=== PATIENT | male | born 1995 | race Caucasian/White ===

== ENCOUNTER 2016-09-19 20:18 | Emergency (ER) | payer OTHER ==
[~2016-09-19] VITALS: Ht 177.8 cm; Wt 110.0 kg
[~2016-09-19 20:18] MED LIST: ALBU8.5H3 INH; ALBUTEROL; PRED20TA PO
[2016-09-19 20:25] VITALS: Ht 177.8 cm; Wt 110.0 kg
[2016-09-19] MEDS ORDERED: ALBUTEROL 0.083% (NEB) 2.5 MG/3 ML AMP HHN STA (20:49)
[2016-09-19] MEDS ORDERED: predniSONE 20 MG TAB PO ONE (21:00)
[2016-09-19] MEDS ORDERED: PRED20TA PO (21:32)
[2016-09-19] MEDS ORDERED: ALBU8.5H3 INH (21:32)
[2016-09-19 21:42] VITALS: PULSE 104
--- NOTE | 2016-09-19 23:01 | ERD ---
ER Documentation Chief Complaint Date/Time DATE: 09/19/16 TIME: 22:59 Chief Complaint "progessivly getting more sob over past week, meds not helping" HPI 21-year-old male history of asthma comes emergency department with on and off shortness of breath for the past week. He states that asthma is usually controlled by albuterol but has not improved. He has not had any fevers or chills. He denies any chest pain. ROS All systems reviewed and are negative except as per history of present illness. Medications Home Meds Active Scripts Prednisone* (Prednisone*) 20 Mg Tab, 40 MG PO DAILY for 4 Days, TAB Prov:J LUIS VILLEGAS PA-C 09/19/16 Albuterol Sulfate* (Proair HFA*) 8.5 Gm Hfa.aer.ad, 2 PUFF INH Q4, #1 INHALER Prov:J LUIS VILLEGAS PA-C 09/19/16 Albuterol Sulfate* (Proair HFA*) 8.5 Gm Hfa.aer.ad, 2 PUFF INH Q4, #1 INHALER Prov:DARIEL ALDRICH NP 01/25/16 Prednisone* (Prednisone*) 20 Mg Tab, 40 MG PO DAILY for 4 Days, TAB Prov:DARIEL ALDRICH NP 01/25/16 Reported Medications [None] No Conflict Check 09/15/12 [Albuterol] No Conflict Check 12/23/09 PMhx/Soc History of Surgery: Yes (APPENDECTOMY 2 YEARS AGO) Anesthesia Reaction: No Hx Neurological Disorder: No Hx Respiratory Disorders: Yes (HX OF ASTHAMA SINCE 2 YEAR OLD) Hx Cardiac Disorders: No Hx Psychiatric Problems: No Hx Miscellaneous Medical Probl: No Hx Alcohol Use: No Hx Substance Use: No Hx Tobacco Use: No Smoking Status: Never smoker Physical Exam Vitals Vital Signs Date Time Temp Pulse Resp B/P Pulse Ox O2 Delivery O2 Flow Rate FiO2 09/19/16 21:42 104 97 Room Air 09/19/16 21:03 95 18 98 21 09/19/16 20:25 98.9 97 22 137/95 98 Physical Exam General: Well-developed, well-nourished. The patient appears in no acute distress. HEENT: Head is normocephalic, atraumatic. No scleral icterus. Neck: Supple. Nontender. Lungs: Wheezing bilaterally, no rales rhonchi. Heart: Regular rate and rhythm. S1 and S2 are normal. No murmurs, gallops, or rubs. Abdomen: Soft, nontender, nondistended. Bowel sounds are normoactive. Extremities: No clubbing or cyanosis. Normal pulses. Moving extremities x 4. No weakness. Neurologic: Alert and oriented 3. No focal deficits. Skin: Normal turgor. No rash or lesions. Results 24 hrs Current Medications Medications (Trade) Dose Ordered Sig/John Route PRN Reason Start Time Stop Time Status Last Admin Dose Admin Albuterol (Proventil 0.083% (Neb)) 5 mg ONCE STAT HHN 09/19/16 20:49 09/19/16 20:51 DC 09/19/16 21:03 Prednisone (Prednisone) 40 mg ONCE ONCE PO 09/19/16 21:00 09/19/16 21:01 DC 09/19/16 20:54 Procedures/MDM 21-year-old male comes emergency department with mild asthma exacerbation. He was given albuterol 5 mg neb breathing treatments. Re-auscultation shows improved breath sounds, patient states he is feeling much better at this time. Presents with a mild asthma exacerbation will be discharged with continued prednisone, and a refill of the albuterol. Departure Diagnosis: Primary Impression: Asthma Condition: Good Patient Instructions: Asthma, Acute (Adult) Additional Instructions: Call your primary care doctor TOMORROW for an appointment during the next 1-2 days.See the doctor sooner or return here if your condition worsens before your appointment time. J LUIS VILLEGAS PA-C Sep 19, 2016 23:01
== END 2016-09-19 21:43 | disposition home or self-care (01) ==
LOC: FTE 20:18
DX: J45.901 Unspecified asthma with (acute) exacerbation (principal)
CPT/HCPCS: 94664; J7512; Z7502; Z7610

== ENCOUNTER 2017-07-10 17:03 | Emergency (ER) | END 2017-07-10 19:15 | disposition home or self-care (01) ==

== ENCOUNTER 2018-11-13 15:32 | Emergency (ER) | payer OTHER ==
[~2018-11-13] VITALS: Ht 177.8 cm; Wt 122.9 kg
[~2018-11-13 15:32] MED LIST changes: +ACET-141 PO; +ACET500C5 PO; +ALBU18HF INHALATION; +ALBU2.5V3 NEB; -ALBU8.5H3 INH; +ALBU8.5H8 INH; +ATRO INH; +D-ME118S24 PO; +IBUP-1561 PO; +NEBU1EAC87 MC
[2018-11-13 16:01] VITALS: Ht 177.8 cm; Wt 122.9 kg
[2018-11-13] MEDS ORDERED: ALBUTEROL 0.083% (NEB) 2.5 MG/3 ML AMP NEB STA (16:43)
[2018-11-13] MEDS ORDERED: DEXAMETHASONE 10 MG/ML 1 ML INJ IV STA (16:43)
[2018-11-13] MEDS ORDERED: IPRATROPIUM (NEB) 0.5 MG/2.5 ML AMP NEB STA (16:47)
[2018-11-13] MEDS ORDERED: ACETAMINOPHEN 325 MG TAB PO ONE (17:00)
[2018-11-13] MEDS ORDERED: predniSONE 20 MG TAB PO ONE (17:30)
[2018-11-13 18:46] VITALS: BP 136/75; PULSE 115; RESP 18
== END 2018-11-13 18:47 | disposition home or self-care (01) ==
LOC: FTE 15:32
DX: J45.901 Unspecified asthma with (acute) exacerbation (principal)
CPT/HCPCS: 71045; 94664; J7512; Z7502; Z7610